=== PATIENT | male | born 1980 | race Caucasian/White ===

== ENCOUNTER 2024-01-27 23:55 | Inpatient (IN) | payer MEDICAID ==
[~2024-01-27] VITALS: Ht 167.6 cm; Wt 74.8 kg
[2024-01-28 00:50] LABS: BASOPHILS % 0.9 % (0.0-2.0); EOSINOPHILS % 0.3 % (0.0-5.0); HEMATOCRIT. 40.6 % (42.0-52.0); HEMOGLOBIN. 13.8 g/dL (14.0-18.0); LYMPHOCYTES % 13.9 % (20.0-50.0); MEAN CORPUSCULAR HGB CONC 33.9 g/dL (31.0-37.0); MEAN CORPUSCULAR VOLUME 91.4 fL (80.0-94.0); MEAN PLATELET VOLUME 7.4 fl (7.4-10.4); MONOCYTES % 8.2 % (2.0-8.0); NEUTROPHILS % 76.7 % (40.0-76.0); PLATELET 316 x1000/uL (130-400); RED BLOOD CELL COUNT 4.44 mill/uL (4.7-6.1); RED CELL DISTRIBUTION WIDTH 13.8 % (11.6-14.6); WHITE BLOOD COUNT 10.6 x1000/uL (4.5-11.0)
[2024-01-28 00:55] LABS: CHLORIDE 96 mEq/L (98-107); POTASSIUM 3.5 mEq/L (3.5-5.1); SODIUM 129 mEq/L (136-145)
[2024-01-28 00:56] LABS: CARBON DIOXIDE 24 mEq/L (21-32)
[2024-01-28 01:01] LABS: CREATININE 1.6 mg/dL (0.6-1.3); GLUCOSE 138 mg/dL (70-105); UREA NITROGEN BLOOD 32 mg/dL (9-23)
[2024-01-28] MEDS: SODIUM CHLORIDE 0.9% 1,000 ML IV ONE ×2 (01:01→04:27)
[2024-01-28 01:03] LABS: PHOSPHORUS 5.6 mg/dL (2.5-4.9)
[2024-01-28 01:14] LABS: CREATINE KINASE 1387 IU/L (46-171)
[2024-01-28 01:42] LABS: PROTHROMBIN TIME 10.7 sec (9.6-11.0)
[2024-01-28 02:04] LABS: ETHANOL BLOOD < 10 mg/dL (<10)
[2024-01-28 04:02] LABS: CLARITY URINE CLEAR (CLEAR); COLOR URINE YELLOW (YELLOW); GLUCOSE URINE NEGATIVE (NEGATIVE); KETONES URINE NEGATIVE (NEGATIVE); LEUKOCYTE ESTERASE URINE NEGATIVE (NEGATIVE); NITRITE URINE NEGATIVE (NEGATIVE); OCCULT BLOOD URINE TRACE (NEGATIVE); PROTEIN URINE 1+ (NEGATIVE); SPECIFIC GRAVITY URINE 1.019 (1.005-1.030); UROBILINOGEN URINE 0.2 E.U./dL (0.2-1.0)
[2024-01-28 04:27] LABS: *AMPHETAMINES SCREEN URINE PRESUMPTIVE POSITIVE (NEGATIVE); *BENZODIAZEPINES SCREEN URINE NEGATIVE (NEGATIVE)
[2024-01-28 04:28] LABS: *BARBITURATES SCREEN URINE NEGATIVE (NEGATIVE); *COCAINE SCREEN URINE NEGATIVE (NEGATIVE); CANNABINOID URINE SCREEN NEGATIVE (NEGATIVE); ECSTASY MDMA SCREEN URINE NEGATIVE (NEGATIVE); METHADONE URINE SCREEN NEGATIVE (NEGATIVE); OPIATES URINE SCREEN NEGATIVE (NEGATIVE); PHENCYCLIDINE URINE SCREEN NEGATIVE (NEGATIVE)
[2024-01-28 04:45] LABS: BACTERIA URINE TRACE; RBC URINE 0-2 /hpf (0-2); SQUAMOUS EPITHELIAL CELL URINE FEW /lpf (RARE/1+); WBC URINE 0-2 /hpf (0-2)
[2024-01-28 09:58] VITALS: BP 102/57; PULSE 63; RESP 20; TEMP 36.6696; O2SAT 100
[2024-01-28] MEDS ORDERED: GUAIFENESIN 200MG/10ML SUGAR FREE UDC PO PRN (10:00)
[2024-01-28] MEDS ORDERED: IPRATROPIUM/ALBUTEROL 0.5-3(2.5)MG/3ML NEB NEB PRN (10:00)
[2024-01-28] MEDS ORDERED: ONDANSETRON HCL 4MG/2ML INJ IV PRN (10:00)
[2024-01-28] MEDS ORDERED: MAGNESIUM/ALUMINUM HYDROXIDE/SIMETHICONE 30ML UDC PO PRN (10:00)
[2024-01-28] MEDS ORDERED: NITROGLYCERIN 0.4MG TABLET SL SL PRN (10:00)
[2024-01-28] MEDS ORDERED: KETOROLAC 15MG/ML VIAL IV PRN (10:00)
[2024-01-28] MEDS: LACTATED RINGERS 1,000 ML IV SCH (10:00)
[2024-01-28] MEDS ORDERED: ACETAMINOPHEN 325MG TABLET PO PRN ×2 (10:00)
[2024-01-28] MEDS ORDERED: CLONIDINE 0.1MG TABLET PO PRN (10:00)
[2024-01-28] MEDS ORDERED: ZOLPIDEM TARTRATE 5MG TABLET PO PRN (10:00)
[2024-01-28] MEDS ORDERED: DOCUSATE SODIUM 100MG CAPSULE PO PRN (10:00)
[2024-01-28 11:00] VITALS: BP 100/62; PULSE 74; RESP 18; TEMP 37.1964
[2024-01-28] MEDS: POTASSIUM CHLORIDE 20MEQ TABLET SR PO NR (13:32)
[2024-01-28 13:36] LABS: CHLORIDE 104 mEq/L (98-107); POTASSIUM 3.9 mEq/L (3.5-5.1); SODIUM 135 mEq/L (136-145)
[2024-01-28 13:37] LABS: CARBON DIOXIDE 24 mEq/L (21-32)
[2024-01-28 13:42] LABS: CREATININE 0.7 mg/dL (0.6-1.3); GLUCOSE 93 mg/dL (70-105); UREA NITROGEN BLOOD 16 mg/dL (9-23)
[2024-01-28 13:43] LABS: CREATINE KINASE MB FRACTION 15.7 ng/mL (0.5-3.6)
[2024-01-28 13:55] LABS: CREATINE KINASE 2066 IU/L (46-171)
[2024-01-28] MEDS: ENOXAPARIN 40MG/0.4ML SYR SUBCUT SCH (18:00)
[2024-01-28 20:00] VITALS: BP 94/69; PULSE 57; RESP 20; TEMP 36.50292; O2SAT 97
[2024-01-28] MEDS: FAMOTIDINE 20MG TABLET PO SCH (21:19)
[2024-01-29 04:00] VITALS: BP 102/32; PULSE 54; RESP 20; TEMP 36.28068; O2SAT 87
[2024-01-29 08:00] VITALS: BP_SYST 121; BP_SYST 122; BP_DIAS 70; BP_DIAS 71; PULSE 55; PULSE 60; RESP 20; TEMP 36.89184; TEMP 37.05852; O2SAT 95; O2SAT 97
[2024-01-29 08:25] LABS: CREATINE KINASE 1321 IU/L (46-171)
[2024-01-29 12:00] VITALS: BP 122/61; PULSE 55; RESP 20; TEMP 37.00296; O2SAT 97
[2024-01-29 16:00] VITALS: BP 113/61; PULSE 55; RESP 20; TEMP 36.9474; O2SAT 97
[2024-01-29 20:00] VITALS: BP 115/56; PULSE 89; RESP 18; TEMP 36.16956; O2SAT 99
[2024-01-30 04:00] VITALS: BP 113/62; PULSE 82; RESP 18; TEMP 36.22512; O2SAT 100
[2024-01-30 08:00] VITALS: BP 89/56; PULSE 63; RESP 19; TEMP 36.6696; O2SAT 99
[2024-01-30 12:00] VITALS: BP 126/78; PULSE 75; RESP 20; TEMP 36.78072; O2SAT 99
[2024-01-30 15:38] VITALS: BP 126/78; PULSE 75; TEMP 98.2; O2SAT 99
== END 2024-01-30 16:35 | disposition home or self-care (01) | DRG 469 ==
LOC: ER 23:55 → 6WST 01-28 05:38
PROVIDERS: ADMIT Internal Medicine; ATTEND Internal Medicine
DX: N17.0 Acute kidney failure with tubular necrosis (principal); M62.82 Rhabdomyolysis; E83.39 Other disorders of phosphorus metabolism; E83.41 Hypermagnesemia; E87.1 Hypo-osmolality and hyponatremia; D63.8 Anemia in other chronic diseases classified elsewhere; F15.10 Other stimulant abuse, uncomplicated
CPT/HCPCS: 36415; 80048; 80305; 80320; 81003; 82550; 82553; 83735; 84100; 85025; 93970; 99285; J1650; J7030; J7120; G0480